=== PATIENT | male | born 1960 | race American Indian/Alaskan Native ===

== ENCOUNTER 2016-07-06 10:30 | Outpatient (CLI) | payer OTHER ==
--- NOTE | 2016-07-06 15:19 | Magnetic Resonance Report ---
MRI ABDOMEN WITH AND WITHOUT CONTRAST INDICATION: Left kidney mass. COMPARISON: None similar. Correlated to 08/26/2014 lumbar spine MRI findings. FINDINGS: Multiplanar and multisequence MRI of the abdomen performed before and after 15 mL MultiHance intravenously. Normal hepatic contours with subtle fatty infiltration not entirely excluded. Right hepatic lobe 19.5 cm in midclavicular length. No biliary dilatation. Spleen, gallbladder, pancreas, adrenals, nonaneurysmal though tortuous abdominal aorta slightly flattening the left lateral wall of the IVC otherwise within normal limits. Some motion artifact. Grossly normal bowel, marrow and muscle signal. Specifically, normal renal contours bilaterally without hydronephrosis. Bilateral renal cortical nonenhancing foci bilaterally noted, some sub-cm and too small to accurately characterize while the largest right interpolar 3.4 cm simple cyst again noted posteriorly. Approximately 0.9 cm left lower renal cortical cyst seen previously now may measure 0.5 cm as on axial image 123, series 13. Right hemidiaphragm slightly elevated. Top normal heart size. No effusions. CONCLUSION: 1. No definite focal suspicious left renal mass identified in this patient with probable interval regression of a sub-cm left renal cortical cyst since August 2014, as described. Correlation with any relevant exams in the interval that may have raised the concern for a left renal mass would also be helpful, if available. 2. Other findings, including relatively stable right renal cyst and prominent/mildly enlarged possibly fatty liver, amongst others, as above. Please correlate. Thank you for the opportunity to participate in this patient's care.
== END 2016-07-06 10:31 | disposition home or self-care (01) ==
LOC: MRI 10:30
PROVIDERS: ATTEND Internal Medicine
DX: N28.1 Cyst of kidney, acquired (principal); Q79.1 Other congenital malformations of diaphragm; R16.0 Hepatomegaly, not elsewhere classified
CPT/HCPCS: 74183; A9577